=== PATIENT | female | born 1990 | race Caucasian/White ===

== ENCOUNTER → 2021-08-31 | Outpatient (REF) | payer BC ==
[2021-08-31 17:54] LABS: HEMATOCRIT 39.3 % (36.0-47.0); HEMOGLOBIN 13.7 g/dl (12.0-15.5); MEAN CORPUSCULAR HEMOGLOBIN 31.7 pg (27.0-33.0); MEAN CORPUSCULAR HGB CONC 34.9 g/dl (32.0-36.5); PLATELET COUNT, AUTOMATED 333 10^3/uL (150-450); RED BLOOD COUNT 4.32 10^6/uL (4.00-5.40); WHITE BLOOD COUNT 11.8 10^3/uL (4.0-10.0)
[2021-08-31 18:44] LABS: HCG, SERUM QUANTITATIVE 64032 MIU/ML; HEPATITIS B SURFACE ANTIGEN NEGATIVE (NEGATIVE); HEPATITIS C VIRUS ABY INDEX 0.1 INDEX (<0.8); HIV 1&2 SCREEN CENTAUR NEGATIVE (NEGATIVE)
== END ==
LOC: M LAB REF 16:19
PROVIDERS: ATTEND Obstetrics & Gynecology
DX: O36.80X0 Pregnancy with inconclusive fetal viability, not applicable or unspecified (principal); Z32.01 Encounter for pregnancy test, result positive; Z3A.00 Weeks of gestation of pregnancy not specified

== ENCOUNTER → 2021-12-30 | Outpatient (CLI) | payer BC ==
[2021-12-30 16:01] LABS: BASO % 0.2 % (0.0-1.0); EOS # 0.1 10^3/uL (0.0-0.5); EOS % 0.5 % (0.0-3.0); HEMOGLOBIN 11.4 g/dl (12.0-15.5); LYMPH # 1.4 10^3/uL (1.5-5.0); LYMPH % 12.4 % (24.0-44.0); MEAN CORPUSCULAR HGB CONC 34.5 g/dl (32.0-36.5); MEAN CORPUSCULAR VOLUME 95.7 fl (80.0-96.0); MONO # 0.8 10^3/uL (0.0-0.8); NEUTROPHILS # 8.8 10^3/uL (1.5-8.5); NEUTROPHILS % 79.3 % (36.0-66.0); PLATELET COUNT, AUTOMATED 283 10^3/uL (150-450); RED BLOOD COUNT 3.45 10^6/uL (4.00-5.40); WHITE BLOOD COUNT 11.1 10^3/uL (4.0-10.0)
== END ==
LOC: M LAB 14:09
PROVIDERS: ATTEND Obstetrics & Gynecology
DX: Z36.89 Encounter for other specified antenatal screening (principal); Z3A.00 Weeks of gestation of pregnancy not specified

== ENCOUNTER → 2022-02-17 | Outpatient (REF) | payer BC | LOC: M LAB REF 16:25 | PROVIDERS: ATTEND Obstetrics & Gynecology | DX: Z34.03 Encounter for supervision of normal first pregnancy, third trimester (principal) ==

== ENCOUNTER 2022-03-03 15:44 | Outpatient (CLI) | payer BC ==
[~2022-03-03] VITALS: Ht 157.5 cm; Wt 68.3 kg
[2022-03-03] MEDS ORDERED: HOME MED LIST COMPLETE! XX SCH (16:05)
[2022-03-03 16:11] VITALS: BP 133/88
[2022-03-03 16:54] LABS: HEMATOCRIT 34.4 % (36.0-47.0); HEMOGLOBIN 11.6 g/dl (12.0-15.5); MEAN CORPUSCULAR HGB CONC 33.7 g/dl (32.0-36.5); MEAN CORPUSCULAR VOLUME 94.8 fl (80.0-96.0); PLATELET COUNT, AUTOMATED 248 10^3/uL (150-450); RED BLOOD COUNT 3.63 10^6/uL (4.00-5.40); WHITE BLOOD COUNT 10.5 10^3/uL (4.0-10.0)
[2022-03-03 17:37] LABS: ALT/SGPT 15 U/L (7.0-40); AST/SGOT 16 U/L (<34); BILIRUBIN,TOTAL 0.3 MG/DL (0.3-1.2); CREATININE FOR GFR 0.69 MG/DL (0.55-1.30); GLOMERULAR FILTRATION RATE > 60.0 (>60); LDH LACTATE DEHYDROGENASE 169 U/L (120-246); URIC ACID 4.4 MG/DL (3.1-7.8)
[2022-03-03 19:30] LABS: CREATININE,RANDOM URINE 87.5 MG/DL; TOTAL PROTEIN,RANDOM URINE 39.8 MG/DL (0.0-14.0)
== END 2022-03-03 19:30 | disposition home or self-care (01) ==
LOC: M LDO 15:44
PROVIDERS: ATTEND Obstetrics & Gynecology
DX: O14.93 Unspecified pre-eclampsia, third trimester (principal); Z3A.37 37 weeks gestation of pregnancy
CPT/HCPCS: 36415; 59025; 82247; 82565; 82570; 83615; 84156; 84450; 84460; 84550; 85027; G0463

== ENCOUNTER 2022-03-15 14:01 | Inpatient (IN) | payer BC ==
[~2022-03-15] VITALS: Ht 157.5 cm; Wt 66.3 kg
[2022-03-15] VITALS (9 sets, daily range): BP systolic 129–153; BP diastolic 79–94
[2022-03-15] MEDS ORDERED: HOME MED LIST COMPLETE! XX SCH (14:30)
[2022-03-15] MEDS ORDERED: OXYTOCIN DRIP 30 UNITS in IV 1 EA IV PRN (15:10)
[2022-03-15] MEDS ORDERED: LIDOCAINE 1% MDV 20ML VIAL INFIL PRN (15:10)
[2022-03-15] MEDS: miSOPROStol 50MCG 1/2 TABLET SL SCH ×2 (15:40→20:02)
[2022-03-15 15:46] LABS: HEMOGLOBIN 12.9 g/dl (12.0-15.5); MEAN CORPUSCULAR HEMOGLOBIN 32.2 pg (27.0-33.0); MEAN CORPUSCULAR HGB CONC 34.9 g/dl (32.0-36.5); MEAN CORPUSCULAR VOLUME 92.3 fl (80.0-96.0); PLATELET COUNT, AUTOMATED 270 10^3/uL (150-450); RED BLOOD COUNT 4.01 10^6/uL (4.00-5.40); WHITE BLOOD COUNT 11.4 10^3/uL (4.0-10.0)
[2022-03-16] VITALS (21 sets, daily range): BP systolic 124–169; BP diastolic 77–100
[2022-03-16] MEDS: miSOPROStol 50MCG 1/2 TABLET SL SCH (01:16)
[2022-03-16] MEDS ORDERED: OXYTOCIN INJ 10UNITS/ML 1ML VIAL IM PRN (08:35)
[2022-03-16] MEDS ORDERED: OXYTOCIN DRIP 30 UNITS in IV 1 EA IV PRN ×4 (08:35)
[2022-03-16] MEDS ORDERED: CARBOPROST TROMETHAMINE 250 MCG/ML AMP IM PRN (08:35)
[2022-03-16] MEDS ORDERED: LIDOCAINE 1% MDV 20ML VIAL INFIL PRN (08:35)
[2022-03-16] MEDS ORDERED: TRANEXAMIC ACID INJection 1,000 MG in NS 100 ML IV PRN (08:35)
[2022-03-16 09:15] LABS: URIC ACID 4.8 MG/DL (3.1-7.8)
[2022-03-16 09:18] LABS: ALT/SGPT 25 U/L (7.0-40); BILIRUBIN,TOTAL 0.3 MG/DL (0.3-1.2); GLOMERULAR FILTRATION RATE > 60.0 (>60); LDH LACTATE DEHYDROGENASE 185 U/L (120-246)
[2022-03-16 09:19] LABS: AST/SGOT 25 U/L (<34)
[2022-03-16 09:50] LABS: CORD GAS ABE V -11.3; CORD GAS HCO3 V 17.5 MEQ/L; CORD GAS O2 SAT V 64.6 %; CORD GAS PCO2 V 48.9 mmHg; CORD GAS PH V 7.171 UNITS; CORD GAS PO2 V 30.1 mmHg; CORD GAS SBC V 15.2 MEQ/L
[2022-03-16] MEDS ORDERED: RHOGAM 300 MCG (1500 IU) INJ (J2790) IM SCH (10:10)
[2022-03-16] MEDS ORDERED: ACETAMINOPHEN TAB 650MG DOSE (2X325MG) PO PRN (10:10)
[2022-03-16] MEDS ORDERED: DIBUCAINE 1% OINTMENT 30GM TOP PRN (10:10)
[2022-03-16] MEDS ORDERED: DOCUSATE SODIUM 100MG CAPSULE PO PRN (10:10)
[2022-03-16] MEDS ORDERED: OXYTOCIN DRIP 30 UNITS in IV 1 EA IV SCH (10:10)
[2022-03-16] MEDS ORDERED: IBUPROFEN 600MG TAB PO PRN (10:10)
[2022-03-16] MEDS ORDERED: ACETAMINOPHEN 500 MG TAB PO PRN (10:10)
[2022-03-16] MEDS ORDERED: IBUPROFEN 800 MG TAB PO PRN (10:10)
[2022-03-16] MEDS ORDERED: ANUSOL HC CREAM 30GM TOP PRN (10:10)
[2022-03-17 05:38] VITALS: BP 129/88
[2022-03-17] MEDS ORDERED: PRENATAL VITAMINS CHEWABLE TABLET PO SCH (09:00)
[2022-03-17 10:00] VITALS: BP 130/82
[2022-03-17 18:00] VITALS: BP 122/72
[2022-03-18 02:00] VITALS: BP 143/90
[2022-03-18 06:00] VITALS: BP 143/89
[2022-03-18] MEDS ORDERED: MEASLES,MUMPS,RUBELLA VACCINE INJ (MMR-II) (90707) SC.IMMUN ONE (09:00)
[2022-03-18 10:00] VITALS: BP 150/97
== END 2022-03-18 13:45 | disposition home or self-care (01) | DRG 560 ==
LOC: M LDI 14:01 → M OBS 03-16 11:40
PROVIDERS: ADMIT Specialist; ATTEND Specialist
PROC: 3E0DXGC Introduction of Other Therapeutic Substance into Mouth and Pharynx, External Approach (ICD-10-PCS; 2022-03-15)
PROC: 10E0XZZ Delivery of Products of Conception, External Approach (ICD-10-PCS; principal; 2022-03-16)
PROC: 0KQM0ZZ Repair Perineum Muscle, Open Approach (ICD-10-PCS; 2022-03-16)
DX: O14.94 Unspecified pre-eclampsia, complicating childbirth (principal); O69.1XX0 Labor and delivery complicated by cord around neck, with compression, not applicable or unspecified; Z37.0 Single live birth; Z3A.40 40 weeks gestation of pregnancy

== ENCOUNTER 2023-08-10 09:06 | Outpatient (CLI) ==
[~2023-08-10] VITALS: Ht 157.5 cm; Wt 76.0 kg
[2023-08-10 09:29] VITALS: BP 142/96
[2023-08-10] MEDS ORDERED: ASPI81CH33 PO (09:35)
[2023-08-10] MEDS ORDERED: PRENTAB9 PO (09:35)
== END 2023-08-10 10:23 | disposition left against medical advice (07) ==
LOC: M LDO 09:06
PROVIDERS: ATTEND Obstetrics & Gynecology
DX: O47.1 False labor at or after 37 completed weeks of gestation (principal); O36.8330 Maternal care for abnormalities of the fetal heart rate or rhythm, third trimester, not applicable or unspecified; O13.3 Gestational [pregnancy-induced] hypertension without significant proteinuria, third trimester; Z3A.40 40 weeks gestation of pregnancy
CPT/HCPCS: 59025; G0463